=== PATIENT | male | born 1990 | race Caucasian/White ===

== ENCOUNTER 2021-07-16 16:39 | Emergency (ER) | payer SELFPAY ==
[~2021-07-16] VITALS: Ht 185.4 cm; Wt 133.8 kg
[2021-07-16 17:03] VITALS: BP 125/78
== END 2021-07-16 17:52 | disposition left against medical advice (07) ==
LOC: EDUNIT# 16:39 → ER 16:39 → EDBD 16:39 → ER 17:52
DX: M25.511 Pain in right shoulder (principal); Z53.21 Procedure and treatment not carried out due to patient leaving prior to being seen by health care provider; W22.8XXA Striking against or struck by other objects, initial encounter; Y93.89 Activity, other specified; Y92.61 Building [any] under construction as the place of occurrence of the external cause; Y99.0 Civilian activity done for income or pay
CPT/HCPCS: 73030

== ENCOUNTER 2021-09-10 16:19 | Emergency (ER) | payer SELFPAY ==
[~2021-09-10] VITALS: Ht 188 cm; Wt 133.8 kg
[2021-09-11 01:38] VITALS: BP 125/71
== END 2021-09-11 02:18 | disposition home or self-care (01) ==
LOC: ER 16:19
DX: R51.9 Headache, unspecified (principal); R20.0 Anesthesia of skin
CPT/HCPCS: 70450

== ENCOUNTER 2022-12-17 08:54 | Emergency (ER) | payer MEDICAID, OTHER ==
[~2022-12-17] VITALS: Ht 185.4 cm; Wt 140.0 kg
[2022-12-17] MEDS ORDERED: SODIUM CHLORIDE 0.9% 1,000 ML IV ONE (09:15)
[2022-12-17] MEDS ORDERED: METOCLOPRAMIDE HCL 5MG/ml INJ 2ml VIAL IV ONE (09:15)
[2022-12-17] MEDS ORDERED: IOHEXOL 350 MG/ML 100ML IJ ONE (09:44)
[2022-12-17 09:59] LABS: Urine Bacteria NONE SEEN /hpf (None Seen); Urine Blood Negative /uL (Negative); Urine Specific Gravity 1.024 (1.001-1.035); Urine WBC 2 /hpf (0 - 3)
[2022-12-17 10:08] LABS: Basophils # (auto) 0.1 10 ^3/uL (0-0.2); Basophils % (auto) 0.7 % (0.0-2.0); Eosinophils # (auto) 0.3 10 ^3/uL (0-0.8); Eosinophils % (auto) 4.2 % (0.0-7.0); Hematocrit 45.1 % (41.0-53.0); Hemoglobin 15.3 g/dL (13.5-17.5); Lymphocytes # (auto) 1.7 10 ^3/uL (0.4-5.4); Lymphocytes % (auto) 23.6 % (10.0-50.0); Mean Corpuscular Hemoglobin 29.5 pg (28.0-32.0); Mean Corpuscular Hgb Conc. 33.9 g/dL (32.0-36.0); Mean Corpuscular Volume 86.8 fL (80.0-100.0); Monocytes # (auto) 0.6 10 ^3/uL (0-1.3); Monocytes % (auto) 7.7 % (0.0-12.0); Neutrophils # (auto) 4.6 10 ^3/uL (1.6-8.6); Neutrophils % (auto) 63.8 % (37.0-80.0); Nucleated Red Blood Cells % 0.2 %; Red Cell Distribution Width 13.3 % (11.8-14.3); White Blood Cell 7.3 10^3/uL (4.4-10.8)
[2022-12-17 10:17] LABS: Calcium 8.3 mg/dL (8.5-10.1); INR 0.97 (0.9-1.15); Partial Thromboplastin Time 30.2 sec (24.6-33.4)
[2022-12-17 10:23] LABS: Albumin 3.5 g/dL (3.4-5.0); BUN/Creatinine Ratio 11.5 (10.0-20.0); Bilirubin, Total 0.4 mg/dL (0.2-1.0); Magnesium 2.4 mg/dL (1.6-2.6); Total Protein 7.5 g/dL (6.4-8.2)
[2022-12-17 10:23] LABS: Barbiturate Scree,Urine NEGATIVE (NEGATIVE); Benzodiazephine Screen, Urine NEGATIVE (NEGATIVE); Cocaine Screen, Urine NEGATIVE (NEGATIVE); Opiate Scree,Urine NEGATIVE (NEGATIVE); Phencyclidine Screen, Urine NEGATIVE (NEGATIVE)
[2022-12-17 10:49] LABS: Alcohol, Urine < 3.0 mg/dL (0-10); Amphetamine Screen, Urine NEGATIVE (NEGATIVE); Cannabinoid Screen, Urine NEGATIVE (NEGATIVE)
[2022-12-17] MEDS ORDERED: METO-281 PO (12:15)
[2022-12-17] MEDS ORDERED: ACET-6 PO (12:15)
[2022-12-17] MEDS ORDERED: ACETAMINOPHEN 500 MG TAB PO ONE (12:15)
[2022-12-17 12:26] VITALS: BP 102/39
== END 2022-12-17 12:44 | disposition home or self-care (01) ==
LOC: ER 08:54
DX: R42 Dizziness and giddiness (principal); R51.9 Headache, unspecified; M79.18 Myalgia, other site
CPT/HCPCS: 36415; 70450; 71045; 71260; 74177; 80053; 80307; 81001; 83605; 83735; 83880; 84484; 85025; 85379; 85610; 85730; 87040; 93005; 96361; 96374; 99285; J2765; J7030; Q9967